=== PATIENT | male | born 1955 ===

== ENCOUNTER 2018-04-02 18:08 | Observation (INO) | payer BC, OTHER ==
--- NOTE | 2018-04-02 18:40 | ED PDOC ---
HPI: Chest Pain Time Seen by Provider: 04/02/18 18:37 Chief Complaint (Nursing): Chest Pain Chief Complaint (Provider): cp History Per: Patient (62 y/o male h/o Diabetes/HTN (diabetes controlled by diet) here with left sided chest pain waxing and waning since Sunday night. Denies any sob/vomiting/diarrhea. Denies any cough/falls. Denies any pleuritic component.) Past Medical History Reviewed: Historical Data, Nursing Documentation, Vital Signs Vital Signs: Last Vital Signs Temp 98 F 04/02/18 18:21 Pulse 64 04/02/18 18:21 Resp 18 04/02/18 18:21 BP 140/88 04/02/18 18:21 Pulse Ox 99 04/02/18 18:21 - Medical History PMH: HTN Denies: Arthritis, CHF, COPD, HIV, Hypercholesterolemia, Hypothyroidism, Chronic Kidney Disease, Rheumatoid Arthritis - Family History Family History: States: Unknown Family Hx - Immunization History Hx Tetanus Toxoid Vaccination: No Hx Influenza Vaccination: No Hx Pneumococcal Vaccination: No - Home Medications Home Medications: Ambulatory Orders Medication Instructions Recorded Valsartan/Hydrochlorothiazide 1 tab PO DAILY 03/07/15 [Valsartan and Hydrochlorothiazide 12.5 mg-320] - Allergies Allergies/Adverse Reactions: Allergies Allergy/AdvReac Type Severity Reaction Status Date / Time No Known Allergies Allergy Verified 04/02/18 18:21 Review of Systems ROS Statement: Except As Marked, All Systems Reviewed And Found Negative Cardiovascular: Positive for: Chest Pain Physical Exam - Reviewed Nursing Documentation Reviewed: Yes Vital Signs Reviewed: Yes - Physical Exam Appears: Positive for: Well, Non-toxic, No Acute Distress Head Exam: Positive for: ATRAUMATIC, NORMAL INSPECTION, NORMOCEPHALIC Skin: Positive for: Normal Color, Warm, DRY Eye Exam: Positive for: EOMI, Normal appearance, PERRL ENT: Positive for: Normal ENT Inspection Neck: Positive for: Normal, Painless ROM Cardiovascular/Chest: Positive for: Regular Rate, Rhythm Respiratory: Positive for: CNT, Normal Breath Sounds Gastrointestinal/Abdominal: Positive for: Normal Exam, Soft Back: Positive for: Normal Inspection Extremity: Positive for: Normal ROM Neurologic/Psych: Positive for: Alert, Oriented - Laboratory Results Result Diagrams: 04/03/18 06:20 04/03/18 06:20 - ECG ECG Rhythm: Positive for: Sinus Rhythm O2 Sat by Pulse Oximetry: 99 - Progress ED Course And Treament: asa 324 mg x 1 dose d/w Dr. Tejeda. Will admit to him. Requests cardiology consult Dr. Farah. Disposition - Clinical Impression Clinical Impression: Chest pain - Patient ED Disposition Is Patient to be Admitted: Yes - Disposition Disposition Time: 20:00 Condition: FAIR - Pt Status Changed To: Hospital Disposition Of: Inpatient - Admit Certification Admit to Inpatient:: After my assessment, the patient will require hospitalization for at least two midnights. This is because of the severity of symptoms shown, intensity of services needed, and/or the medical risk in this patient being treated as an outpatient.
[2018-04-02 19:26] LABS: BASO % 1.2 % (0.0-2.0); EOS % 0.8 % (0.0-4.0); LYMPH # 1.4 K/uL (1.0-4.3); LYMPH % 38.4 % (20.0-40.0); MEAN CELL VOLUME 94.1 fl (80.0-94.0); MEAN CORPUSCULAR HEMOGLOBIN 31.7 pg (27.0-31.0); MEAN CORPUSCULAR HGB CONC 33.6 g/dL (33.0-37.0); MEAN PLATELET VOLUME 8.7 fl (7.2-11.7); MONO # 0.3 K/uL (0.0-0.8); MONO % 9.3 % (0.0-10.0); NEUT # 1.8 K/uL (1.8-7.0); NEUT % 50.3 % (50.0-75.0); RBC 4.42 Mil/uL (4.40-5.90); RED CELL DISTRIBUTION WIDTH 13.5 % (11.5-14.5); WHITE BLOOD COUNT 3.5 K/uL (4.8-10.8)
[2018-04-02 19:44] LABS: ALB/GLOB RATIO 1.4 (1.0-2.1); ALBUMIN 4.5 g/dL (3.5-5.0); ALT/SGPT 30 U/L (21-72); AST/SGOT 32 U/L (17-59); BLOOD UREA NITROGEN 15 mg/dl (9-20); CALCIUM 9.6 mg/dL (8.4-10.2); GFR NON-AFRICAN AMERICAN > 60
[2018-04-02] MEDS ORDERED: Potassium Chloride 20 mEq ER Tab PO ONE ×2 (19:46→20:29)
[2018-04-02 19:47] LABS: PROTHROMBIN TIME 11.3 Seconds (9.8-13.1)
[2018-04-02 19:49] LABS: PARTIAL THROMBOPLASTIN TIME 30.5 Seconds (25.6-37.1)
[2018-04-03 06:57] LABS: HEMOGLOBIN 13.5 g/dL (12.0-18.0); MEAN CELL VOLUME 93.7 fl (80.0-94.0); MEAN CORPUSCULAR HEMOGLOBIN 31.3 pg (27.0-31.0); MEAN CORPUSCULAR HGB CONC 33.4 g/dL (33.0-37.0); RBC 4.32 Mil/uL (4.40-5.90); RED CELL DISTRIBUTION WIDTH 13.5 % (11.5-14.5); WHITE BLOOD COUNT 3.1 K/uL (4.8-10.8)
[2018-04-03 07:21] LABS: ALB/GLOB RATIO 1.4 (1.0-2.1); ALT/SGPT 32 U/L (21-72); AST/SGOT 30 U/L (17-59); BLOOD UREA NITROGEN 16 mg/dl (9-20); CALCIUM 9.1 mg/dL (8.4-10.2); GFR NON-AFRICAN AMERICAN > 60; HDL CHOLESTEROL 67 MG/DL (30-70)
[2018-04-03 07:32] LABS: LDL CHOLESTEROL 119 mg/dL (0-129)
--- NOTE | 2018-04-03 08:56 | CARD ---
APPROVED REPORT Date of service: 04/03/2018 EKG Measurement Heart [id number] <Conclusion> Sinus bradycardia Otherwise normal ECG
--- NOTE | 2018-04-03 13:07 | CP.PCM.HP ---
History of Present Illness - History of Present Illness History of Present Illness: 63 y/o M, with PMHx: HTN, DMII ( controlled with diet), Hx. ZACARIAS trimble, came to [facility] on 04/02/18 to be evaluated for Chest pain that began 2 days SECTION HAND and continue with no relief. CP began with with activity, described as L side, sharp, intermittent, stabbing type, non radiating, moderate intensity 5:10. associated condition, low HR, (in ER HR: 56). No worsening symptoms or aggravated factor. Pt denied: Fever, chills, n/v/d, abdominal pain, urinary symptoms, CP, syncope, dizziness, SOB, cough, sick contact, recent travel out of [place]. EKG: Sinus Bradycardia. Present on Admission - Present on Admission Any Indicators Present on Admission: No Review of Systems - Constitutional Constitutional: Other - EENT Eyes: Requires Corrective Lenses Ears: Other (negative) Nose/Mouth/Throat: Other (negative) - Cardiovascular Cardiovascular: Chest Pain - Respiratory Respiratory: Other (negative) - Gastrointestinal Gastrointestinal: Other (negative) - Genitourinary Genitourinary: Other (negative) - Musculoskeletal Musculoskeletal: Other (negative) - Integumentary Integumentary: Other (negative) - Neurological Neurological: Other (negative) - Psychiatric Psychiatric: Other (negative) - Endocrine Endocrine: Other (negative) - Hematologic/Lymphatic Hematologic: Other (negative) Past Patient History - Infectious Disease Hx of Infectious Diseases: None - Past Medical History & Family History Past Medical History?: Yes Pertinent Family History: Unknown - Past Social History Smoking Status: Never Smoked Alcohol: < 2 Drinks/Day Drugs: Denies Home Situation {Lives}: With Family - CARDIAC Hx Cardiac Disorders: Yes Hx Congestive Heart Failure: No Hx Hypercholesterolemia: No Hx Hypertension: Yes - PULMONARY Hx Respiratory Disorders: No Hx Chronic Obstructive Pulmonary Disease (COPD): No - NEUROLOGICAL Hx Neurological Disorder: No HX Cerebrovascular Accident: No - HEENT Hx HEENT Problems: Yes Other/Comment: reading glasses - RENAL Hx Chronic Kidney Disease: No - ENDOCRINE/METABOLIC Hx Endocrine Disorders: Yes Hx Diabetes Mellitus Type 2: Yes (controlled with diet.) - HEMATOLOGICAL/ONCOLOGICAL Hx Blood Disorders: No Hx Human Immunodeficiency Virus (HIV): No - INTEGUMENTARY Hx Dermatological Problems: No - MUSCULOSKELETAL/RHEUMATOLOGICAL Hx Musculoskeletal Disorders: Yes Hx Arthritis: No Hx Falls: Yes Hx Fractures: Yes (L ankle) Hx Rheumatoid Arthritis: No - GASTROINTESTINAL Hx Gastrointestinal Disorders: No - GENITOURINARY/GYNECOLOGICAL Hx Genitourinary Disorders: No - PSYCHIATRIC Hx Psychophysiologic Disorder: No Hx Substance Use: No - SURGICAL HISTORY Hx Surgeries: Yes Hx Orthopedic Surgery: Yes (l ankle orif 2013) - ANESTHESIA Hx Anesthesia: Yes Hx Anesthesia Reactions: No Hx Malignant Hyperthermia: No Meds Allergies/Adverse Reactions: Allergies Allergy/AdvReac Type Severity Reaction Status Date / Time No Known Allergies Allergy Verified 04/02/18 18:21 Physical Exam - Constitutional Appears: No Acute Distress - Head Exam Head Exam: NORMAL INSPECTION - Eye Exam Eye Exam: PERRL - ENT Exam ENT Exam: Normal Exam - Neck Exam Neck exam: Positive for: Normal Inspection - Respiratory Exam Respiratory Exam: NORMAL BREATHING PATTERN - Cardiovascular Exam Cardiovascular Exam: REGULAR RHYTHM - GI/Abdominal Exam GI & Abdominal Exam: Normal Bowel Sounds, Soft - Extremities Exam Extremities exam: Positive for: normal inspection Additional comments: S/P ORIF L ankle. - Back Exam Back exam: NORMAL INSPECTION - Neurological Exam Neurological exam: Alert, Oriented x3 Additional comments: No motor/sensory deficit. - Psychiatric Exam Psychiatric exam: Normal Mood - Skin Skin Exam: Normal Color, Warm Results - Vital Signs Recent Vital Signs: Last Vital Signs Temp 97.6 F 04/03/18 12:15 Pulse 63 04/03/18 12:15 Resp 18 04/03/18 12:15 BP 118/81 04/03/18 12:15 Pulse Ox 95 04/03/18 12:15 reviewed Jaime - Labs Result Diagrams: 04/03/18 06:20 04/03/18 06:20 Labs: Laboratory Results - last 24 hr 04/02/18 04/02/18 04/02/18 19:16 19:16 19:16 WBC 3.5 L D RBC 4.42 Hgb 14.0 Hct 41.6 MCV 94.1 H MCH 31.7 H MCHC 33.6 RDW 13.5 Plt Count 180 MPV 8.7 Neut % (Auto) 50.3 Lymph % (Auto) 38.4 [place] % (Auto) 9.3 Eos % (Auto) 0.8 Baso % (Auto) 1.2 Neut # (Auto) 1.8 Lymph # (Auto) 1.4 [place] # (Auto) 0.3 Eos # (Auto) 0.0 Baso # (Auto) 0.0 PT 11.3 INR 1.0 APTT 30.5 Sodium 135 Potassium 3.5 L Chloride 93 L Carbon Dioxide 30 Anion Gap 16 BUN 15 Creatinine 1.2 Est GFR ( Amer) > 60 Est GFR (Non-Af Amer) > 60 Random Glucose 118 H Hemoglobin A1c Calcium 9.6 Magnesium 1.6 Total Bilirubin 0.4 AST 32 ALT 30 Alkaline Phosphatase 74 Troponin I < 0.0120 Total Protein 7.7 Albumin 4.5 Globulin 3.2 Albumin/Globulin Ratio 1.4 Triglycerides Cholesterol LDL Cholesterol Direct HDL Cholesterol 25-OH Vitamin D Total Thyroxine (T4) TSH 3rd Generation 0.65 04/03/18 04/03/18 04/03/18 06:20 06:20 06:20 WBC 3.1 L RBC 4.32 L Hgb 13.5 Hct 40.5 MCV 93.7 MCH 31.3 H MCHC 33.4 RDW 13.5 Plt Count 181 MPV Neut % (Auto) Lymph % (Auto) [place] % (Auto) Eos % (Auto) Baso % (Auto) Neut # (Auto) Lymph # (Auto) [place] # (Auto) Eos # (Auto) Baso # (Auto) PT INR APTT Sodium 136 Potassium 3.8 Chloride 94 L Carbon Dioxide 31 H Anion Gap 15 BUN 16 Creatinine 1.0 Est GFR ( Amer) > 60 Est GFR (Non-Af Amer) > 60 Random Glucose 99 Hemoglobin A1c Calcium 9.1 Magnesium Total Bilirubin 0.6 AST 30 ALT 32 Alkaline Phosphatase 60 Troponin I < 0.0120 Total Protein 7.0 Albumin 4.0 Globulin 2.9 Albumin/Globulin Ratio 1.4 Triglycerides 108 Cholesterol 223 H LDL Cholesterol Direct 119 HDL Cholesterol 67 25-OH Vitamin D Total < 12.8 L Thyroxine (T4) 6.06 TSH 3rd Generation 1.40 04/03/18 06:20 WBC RBC Hgb Hct MCV MCH MCHC RDW Plt Count MPV Neut % (Auto) Lymph % (Auto) [place] % (Auto) Eos % (Auto) Baso % (Auto) Neut # (Auto) Lymph # (Auto) [place] # (Auto) Eos # (Auto) Baso # (Auto) PT INR APTT Sodium Potassium Chloride Carbon Dioxide Anion Gap BUN Creatinine Est GFR ( Amer) Est GFR (Non-Af Amer) Random Glucose Hemoglobin A1c 5.9 Calcium Magnesium Total Bilirubin AST ALT Alkaline Phosphatase Troponin I Total Protein Albumin Globulin Albumin/Globulin Ratio Triglycerides Cholesterol LDL Cholesterol Direct HDL Cholesterol 25-OH Vitamin D Total Thyroxine (T4) TSH 3rd Generation reviewed J.P. - EKG Data EKG comments: reviewed J.P. Assessment & Plan (1) Chest pain Status: Acute Priority: High (2) Hypertension Status: Chronic Priority: Medium - Assessment and Plan (Free Text) Plan: F/U CXR, Echo, Carotid-Vertebral U-S, Keep in NPO post MN, for Nuclear ST in AM with Dr Farah. Cardiology consult appreciated. - Date & Time Date: 04/03/18
--- NOTE | 2018-04-03 14:06 | CP.PCM.CON ---
History of Present Illness - History of Present Illness History of Present Illness: Miah No PGY1, Cardio consult note for Dr Farah Pt is a 63 yo male non smoker with a PMH of DM, HTN who presented to the emergency department complaining of 5/10 burning left sided chest pain which started Sunday and had been intermittent until arrival. Denies radiation to her arm or jaw. Pt states she was being active around the house when the pain started. The pain is not positional and not worsened by breathing. Pt did not try anything to help relieve the pain before arrival. A 12 point ROS was obta ined and added to the HPI where appropriate. Past Patient History - Infectious Disease Hx of Infectious Diseases: None - Past Medical History & Family History Past Medical History?: Yes - Past Social History Smoking Status: Never Smoked - CARDIAC Hx Congestive Heart Failure: No Hx Hypercholesterolemia: No Hx Hypertension: Yes - PULMONARY Hx Chronic Obstructive Pulmonary Disease (COPD): No - NEUROLOGICAL Hx Neurological Disorder: No HX Cerebrovascular Accident: No - HEENT Hx HEENT Problems: Yes Other/Comment: reading glasses - RENAL Hx Chronic Kidney Disease: No - ENDOCRINE/METABOLIC Hx Hypothyroidism: No - HEMATOLOGICAL/ONCOLOGICAL Hx Human Immunodeficiency Virus (HIV): No - INTEGUMENTARY Hx Dermatological Problems: No - MUSCULOSKELETAL/RHEUMATOLOGICAL Hx Arthritis: No Hx Falls: Yes Hx Rheumatoid Arthritis: No - GASTROINTESTINAL Hx Gastrointestinal Disorders: No - GENITOURINARY/GYNECOLOGICAL Hx Genitourinary Disorders: No - PSYCHIATRIC Hx Psychophysiologic Disorder: No Hx Substance Use: No - SURGICAL HISTORY Hx Surgeries: Yes Hx Orthopedic Surgery: Yes (l ankle orif 2013) - ANESTHESIA Hx Anesthesia: Yes Hx Anesthesia Reactions: No Hx Malignant Hyperthermia: No Meds Allergies/Adverse Reactions: Allergies Allergy/AdvReac Type Severity Reaction Status Date / Time No Known Allergies Allergy Verified 04/02/18 18:21 Physical Exam - Constitutional Appears: No Acute Distress - Head Exam Head Exam: ATRAUMATIC, NORMOCEPHALIC - Eye Exam Eye Exam: EOMI - ENT Exam ENT Exam: Mucous Membranes Moist - Neck Exam Neck exam: Positive for: Full Rom - Respiratory Exam Respiratory Exam: Clear to Auscultation Bilateral, NORMAL BREATHING PATTERN. absent: Accessory Muscle Use, Respiratory Distress - Cardiovascular Exam Cardiovascular Exam: RRR, +S1, +S2. absent: Diastolic murmur, Systolic Murmur - GI/Abdominal Exam GI & Abdominal Exam: Normal Bowel Sounds, Soft - Extremities Exam Extremities exam: Positive for: calf tenderness, full ROM, pedal pulses present. Negative for: pedal edema, tenderness - Neurological Exam Neurological exam: Alert, Normal Gait, Oriented x3 - Psychiatric Exam Psychiatric exam: Normal Affect, Normal Mood - Skin Skin Exam: Dry, Normal Color Results - Vital Signs Recent Vital Signs: Last Vital Signs Temp 97.6 F 04/03/18 12:15 Pulse 63 04/03/18 12:15 Resp 18 04/03/18 12:15 BP 118/81 04/03/18 12:15 Pulse Ox 95 04/03/18 12:15 - Labs Result Diagrams: 04/03/18 06:20 04/03/18 06:20 Labs: Laboratory Results - last 24 hr 04/02/18 04/02/18 04/02/18 19:16 19:16 19:16 WBC 3.5 L D RBC 4.42 Hgb 14.0 Hct 41.6 MCV 94.1 H MCH 31.7 H MCHC 33.6 RDW 13.5 Plt Count 180 MPV 8.7 Neut % (Auto) 50.3 Lymph % (Auto) 38.4 [place] % (Auto) 9.3 Eos % (Auto) 0.8 Baso % (Auto) 1.2 Neut # (Auto) 1.8 Lymph # (Auto) 1.4 [place] # (Auto) 0.3 Eos # (Auto) 0.0 Baso # (Auto) 0.0 PT 11.3 INR 1.0 APTT 30.5 Sodium 135 Potassium 3.5 L Chloride 93 L Carbon Dioxide 30 Anion Gap 16 BUN 15 Creatinine 1.2 Est GFR ( Amer) > 60 Est GFR (Non-Af Amer) > 60 Random Glucose 118 H Hemoglobin A1c Calcium 9.6 Magnesium 1.6 Total Bilirubin 0.4 AST 32 ALT 30 Alkaline Phosphatase 74 Troponin I < 0.0120 Total Protein 7.7 Albumin 4.5 Globulin 3.2 Albumin/Globulin Ratio 1.4 Triglycerides Cholesterol LDL Cholesterol Direct HDL Cholesterol 25-OH Vitamin D Total Thyroxine (T4) TSH 3rd Generation 0.65 04/03/18 04/03/18 04/03/18 06:20 06:20 06:20 WBC 3.1 L RBC 4.32 L Hgb 13.5 Hct 40.5 MCV 93.7 MCH 31.3 H MCHC 33.4 RDW 13.5 Plt Count 181 MPV Neut % (Auto) Lymph % (Auto) [place] % (Auto) Eos % (Auto) Baso % (Auto) Neut # (Auto) Lymph # (Auto) [place] # (Auto) Eos # (Auto) Baso # (Auto) PT INR APTT Sodium 136 Potassium 3.8 Chloride 94 L Carbon Dioxide 31 H Anion Gap 15 BUN 16 Creatinine 1.0 Est GFR ( Amer) > 60 Est GFR (Non-Af Amer) > 60 Random Glucose 99 Hemoglobin A1c Calcium 9.1 Magnesium Total Bilirubin 0.6 AST 30 ALT 32 Alkaline Phosphatase 60 Troponin I < 0.0120 Total Protein 7.0 Albumin 4.0 Globulin 2.9 Albumin/Globulin Ratio 1.4 Triglycerides 108 Cholesterol 223 H LDL Cholesterol Direct 119 HDL Cholesterol 67 25-OH Vitamin D Total < 12.8 L Thyroxine (T4) 6.06 TSH 3rd Generation 1.40 04/03/18 06:20 WBC RBC Hgb Hct MCV MCH MCHC RDW Plt Count MPV Neut % (Auto) Lymph % (Auto) [place] % (Auto) Eos % (Auto) Baso % (Auto) Neut # (Auto) Lymph # (Auto) [place] # (Auto) Eos # (Auto) Baso # (Auto) PT INR APTT Sodium Potassium Chloride Carbon Dioxide Anion Gap BUN Creatinine Est GFR ( Amer) Est GFR (Non-Af Amer) Random Glucose Hemoglobin A1c 5.9 Calcium Magnesium Total Bilirubin AST ALT Alkaline Phosphatase Troponin I Total Protein Albumin Globulin Albumin/Globulin Ratio Triglycerides Cholesterol LDL Cholesterol Direct HDL Cholesterol 25-OH Vitamin D Total Thyroxine (T4) TSH 3rd Generation Assessment & Plan - Assessment and Plan (Free Text) Assessment: Angina, rule out ACS HTN DM Plan: Angina, ACS rule out Trop 04/02/18 negative x2 HA1C 04/03/18 5.9 EKG 04/03/[address], [address] or T wave abnormalities ECHO 04/03/18 completed, follow up results Follow up stress test tomorrow Medications given ASA Pt seen, examined, assessment and plan discussed with Dr Gagan No PGY1, Internal Medicine Resident - Date & Time Date: 04/03/18 Time: 07:40
--- NOTE | 2018-04-03 15:00 | CARD ---
APPROVED REPORT Date of service: 04/03/2018 EXAM: Two-dimensional and M-mode echocardiogram with Doppler and color Doppler. Other Information Quality : GoodRhythm : NSR INDICATION Chest Pain 2D DIMENSIONS IVSd1.01 (0.7-1.1cm)LVDd4.88 (3.9-5.9cm) LVOT Diameter2.43 (1.8-2.4cm)PWd0.95 (0.7-1.1cm) IVSs1.16 (0.8-1.2cm)LVDs3.70 (2.5-4.0cm) FS (%) 24.3 %PWs1.31 (0.8-1.2cm) M-Mode DIMENSIONS Left Atrium (MM)3.65 (2.5-4.0cm)IVSd0.97 (0.7-1.1cm) Aortic Root3.50 (2.2-3.7cm)LVDd5.79 (4.0-5.6cm) Aortic Cusp Exc.2.56 (1.5-2.0cm)PWd1.06 (0.7-1.1cm) IVSs1.47 cmFS (%) 50 % LVDs2.88 (2.0-3.8cm)PWs2.03 cm Aortic Valve AoV Peak Nkbhznpk567.5cm/sAoV VTI30.0cmAO Peak GR.10mmHg LVOT Peak Mzfqbxiu20.5cm/sLVOT VTI16.18cmAO Mean GR.5mmHg SANDOVAL (VMAX)1.05lw1WSI (VTI)1.29cm2 Mitral Valve MV E Zbhkdiyp39.4cm/sMV DECEL [id number] A Zugxhkez11.0cm/s MV ULZ76hrB/A ratio1.2MVA (PHT)4.16cm2 TDI Lateral E' Peak V14.96cm/sMedial E' Peak V9.86cm/sE/Lateral E'4.2 E/Medial E'6.4 LEFT VENTRICLE The left ventricle is normal size. There is normal left ventricular wall thickness. The left ventricular systolic function is normal. The estimated ejection fraction is 55-60% No regional wall motion abnormalities noted.. The left ventricular diastolic function is normal. No left ventricle thrombus noted on this study. There is no ventricular septal defect visualized. There is no left ventricular aneurysm. There is no mass noted in the left ventricle. RIGHT VENTRICLE The right ventricle is normal size. There is normal right ventricular wall thickness. The right ventricular systolic function is normal. ATRIA The left atrium size is normal. The right atrium size is normal. The interatrial septum is intact with no evidence for an atrial septal defect. AORTIC VALVE The aortic valve is normal in structure. No aortic regurgitation is present. There is no aortic valvular stenosis. There is no aortic valvular vegetation. MITRAL VALVE The mitral valve is normal in structure. There is no evidence of mitral valve prolapse. There is no mitral valve stenosis. There is no mitral valve regurgitation noted. TRICUSPID VALVE The tricuspid valve is normal in structure. There is no tricuspid valve regurgitation noted. There is no tricuspid valve prolapse or vegetation. There is no tricuspid valve stenosis. PULMONIC VALVE The pulmonary valve is normal in structure. There is no pulmonic valvular regurgitation. There is no pulmonic valvular stenosis. GREAT VESSELS The aortic root is normal in size. The ascending aorta is normal in size. The pulmonary artery is normal. The IVC is normal in size and collapses >50% with inspiration. PERICARDIAL EFFUSION There is no pericardial effusion. There is no pleural effusion. <Conclusion> The estimated ejection fraction is 55-60% The left ventricular diastolic function is normal. The left atrium size is normal. There is no tricuspid valve regurgitation noted. The IVC is normal in size and collapses >50% with inspiration.
--- NOTE | 2018-04-03 15:35 | US ---
Date of service: 04/03/2018 PROCEDURE: Duplex ultrasound of the carotid and vertebral arteries. HISTORY: as per Dr. garcia COMPARISON: None available. TECHNIQUE: Grayscale and duplex Doppler evaluation of the cervical carotid and vertebral arteries were performed. The common carotid, carotid bifurcations and cervical ICA and proximal ECA were evaluated. The vertebral arteries were evaluated for gross patency and direction. FINDINGS: RIGHT CAROTID ARTERIES: Common Carotid Artery: Maximal flow velocity of 112.1 cm/s. Carotid Bifurcation: Intimal thickening is present Internal Carotid Artery:Heterogeneous plaque formation. Maximal flow velocity of 90.1 cm/s. External Carotid Artery (proximal branches): Maximal flow velocity of 91.7 cm/s. ICA/CCA Ratio: 0.8 LEFT CAROTID ARTERIES: Common Carotid Artery: Maximal flow velocity of 93.2 cm/s. Carotid Bifurcation: Intimal thickening is present Internal Carotid Artery:Heterogeneous plaque formation. Maximal flow velocity of 84.0 cm/s. External Carotid Artery (proximal branches): Maximal flow velocity of 64.6 cm/s. ICA/CCA Ratio: 0.9 VERTEBRAL ARTERIES: Right Vertebral Artery: Patent. Antegrade flow. Left Vertebral Artery: Patent. Antegrade flow. OTHER FINDINGS: Atherosclerotic calcification present. IMPRESSION: Right ICA degree of stenosis: Less than 50% Left ICA degree of stenosis: Less than 50% Reference Internal Carotid Artery (ICA) Peak Systolic Velocity (PSV) for above: 1. Less than 50% stenosis less than 125 cm/s peak systolic velocity 2. 50-69% stenosis 125-230cm/s peak systolic velocity 3. Greater than 70% but less than near occlusion greater than 230 cm/s peak systolic velocity
--- NOTE | 2018-04-03 16:46 | RAD ---
Date of service: 04/02/2018 HISTORY: cp COMPARISON: Chest radiographs 06/19/2013. FINDINGS: LUNGS: Diminished inspiratory volume. No acute infiltrate bilaterally. PLEURA: No significant pleural effusion identified, no pneumothorax apparent. CARDIOVASCULAR: No aortic atherosclerotic calcification present. Normal cardiac size. No pulmonary vascular congestion. OSSEOUS STRUCTURES: No significant abnormalities. VISUALIZED UPPER ABDOMEN: Normal. OTHER FINDINGS: None. IMPRESSION: Diminished inspiratory volume. No acute infiltrate, pleural effusion, pneumothorax or pulmonary vascular congestion in the interval.
--- NOTE | 2018-04-04 08:40 | CP.PCM.PN ---
Subjective - Date & Time of Evaluation Date of Evaluation: 04/04/18 Time of Evaluation: 07:35 - Subjective Subjective: Pt seen and examined this morning at bedside. Denies chest pain or SOB Objective - Vital Signs/Intake and Output Vital Signs (last 24 hours): Temp Pulse Resp BP Pulse Ox 97.9 F 60 18 133/75 96 04/04/18 08:25 04/04/18 08:25 04/04/18 08:25 04/04/18 08:25 04/04/18 08:25 - Labs Labs: 04/03/18 06:20 04/03/18 06:20 PT 11.3 Seconds (9.8-13.1) 04/02/18 19:16 INR 1.0 04/02/18 19:16 APTT 30.5 Seconds (25.6-37.1) 04/02/18 19:16 - Constitutional Appears: No Acute Distress - Head Exam Head Exam: ATRAUMATIC, NORMOCEPHALIC - Eye Exam Eye Exam: EOMI - ENT Exam ENT Exam: Mucous Membranes Moist - Neck Exam Neck Exam: Full ROM - Respiratory Exam Respiratory Exam: Clear to Ausculation Bilateral, NORMAL BREATHING PATTERN. absent: Accessory Muscle Use - Cardiovascular Exam Cardiovascular Exam: RRR, +S1, +S2. absent: Diastolic murmur - GI/Abdominal Exam GI & Abdominal Exam: Soft, Normal Bowel Sounds. absent: Tenderness - Extremities Exam Extremities Exam: Full ROM. absent: Calf Tenderness, Pedal Edema - Neurological Exam Neurological Exam: Alert, Awake, Oriented x3 - Psychiatric Exam Psychiatric exam: Normal Affect, Normal Mood - Skin Skin Exam: Dry, Normal Color, Warm Assessment and Plan - Assessment and Plan (Free Text) Assessment: Angina, rule out ACS HTN DM Plan: Angina, ACS rule out Trop 04/02/18 negative x2 HA1C 04/03/18 5.9 EKG 04/03/18 bradycardia, no ST or T wave abnormalities ECHO 04/03/18 EF55-60%, diastolic function normal Follow up stress test Pt seen, examined, assessment and plan discussed with Dr Gagan oN PGY1, Internal Medicine Resident
--- NOTE | 2018-04-04 15:22 | CARD ---
APPROVED REPORT Date of service: 04/04/2018 Protocol: COLIN Test Type: Stress Nuclear Medications: ASPIRIN 81MG Medical History: DIABETIC, HTN, OTHOPEDIC SURGERY LT ANKLE 2013 Target HR: 159 bpm Resting ECG: normal Resting Heart Rate: 76 bpm Resting Blood Pressure: 153/105mmHg submaximum (85%): 135 bpm TEST SUMMARY EXERCISESTAGE 202:[id number]/90.1. [id number]/105.0. PRETESTHYPERV.00:[id number]/105.0. PRETESTWARM-UP21:[id number]/105.1. EXERCISESTAGE 103:[id number]/80.0. EXERCISESTAGE 202:[id number]/90.1. CKYIHGDR22:[id number]/100.1. POST EXERCISE Reason for Termination: Fatigue Target HR: No Max HR: 136 bpm 86% of Maximum Predicted HR: 159 bpm Exercise duration: 05:10 min:sec, 2 Stage Exercise capacity: 7.0METs Max Blood Pressure: 200/90mmHg Blood Pressure response to exercise: normal resting BP - appropriate response Heart Rate response to exercise: appropriate Chest Pain: No, none Angina index: 0 Arrhythmia: No, none ST Change: No, none Deviation: 0 mm Clinical Indications Under Appropriate Use Criteria Patient with a history of diabetes comes in into the hospital with history of chest pressure for nuclear stress test Stress EKG Interpretation No st or t waves changes noticed. No chest pain reported during the stress test RESTING ECG Rhythm: Sinus Conduction: Normal Arrhythmias: None Repolarization: Normal STRESS ECG Rhythm: Sinus Conduction: Normal Arrhythmias: None Repolarization: Normal none ST-Segment changes. EXAM: Myocardial Perfusion REST/STRESS Image QualityGood Imaging Protocol The imaging protocol used to acquire images was Rest Tc-99m/stress Tc-99m 1 day Rest Spect myocardial perfusion imaging was performed in supine position 132 minutes following the injection of 10 mCi of Tc-99 Myoview. Time of rest injection: 7:59 Time of rest imagin:12 At peak stress, the patient was injected intravenously with 30mCi of Tc-99 tetrofosmin after an infusion time of minutes and seconds. Time of stress injection: 10:55 Time of stress imagin:22 Gated Stress Spect was performed 207 minutes after intravenous Tc-99 Myoview injection. The images were gated to evaluate regional wall motion and calculate ventricular ejection fraction. NUCLEAR IMAGE INTERPRETATION Study quality was excellent. Left Ventricular size was Enlarged at Rest and Stress. Lung uptake was Normal. Left Ventricular ejection fraction is 58%. LV Perfusion There is a perfusion defect affecting the inferior wall of the left ventricle. NO reversible defect was noticed. LV Perfusion 1 Perfusion Defect Location: basal inferior Perfusion Defect Size: Small (1-2 segments) Perfusion Defect Severity: Mild Wall Motion Thre is a mild area of akinesia affecting the inferior wall of the left ventricle. LVEF 58% CONCLUSION 1. -Abnormal nuclear stress test due to area of akinesia on the inferior wall and a small fixed defect on the area of the RCA. No reversible defect noticed (no new area of myocardial ischemia) Recommendation Medical therpay
[2018-04-04 16:24] VITALS: BP 133/83; PULSE 70; RESP 16; TEMP 97.9; O2SAT 97
--- NOTE | 2018-04-04 19:33 | CP.PCM.PN ---
Objective - Vital Signs/Intake and Output Vital Signs (last 24 hours): Temp Pulse Resp BP Pulse Ox 97.9 F 70 16 133/83 97 04/04/18 16:23 04/04/18 16:23 04/04/18 16:23 04/04/18 16:23 04/04/18 16:23 - Labs Labs: 04/03/18 06:20 04/03/18 06:20 PT 11.3 Seconds (9.8-13.1) 04/02/18 19:16 INR 1.0 04/02/18 19:16 APTT 30.5 Seconds (25.6-37.1) 04/02/18 19:16 Assessment and Plan (1) Chest pain Status: Acute (2) Hypertension Status: Chronic
--- NOTE | 2018-04-04 20:09 | CP.PCM.DIS ---
Provider - Provider Date of Admission: 04/02/18 20:10 Attending physician: Baldomero Tejeda MD Consults: 04/02/18 21:38 Cardiology Consult Stat Comment: Consulting Provider: Angelito Farah Consulting Physician: Angelito Farah Reason for Consult: CP Diagnosis - Discharge Diagnosis (1) Chest pain Status: Acute Priority: High (2) Hypertension Status: Chronic Priority: Medium Hospital Course - Lab Results Lab Results: Most Recent Lab Values WBC 3.1 K/uL (4.8-10.8) L 04/03/18 06:20 RBC 4.32 Mil/uL (4.40-5.90) L 04/03/18 06:20 Hgb 13.5 g/dL (12.0-18.0) 04/03/18 06:20 Hct 40.5 % (35.0-51.0) 04/03/18 06:20 MCV 93.7 fl (80.0-94.0) 04/03/18 06:20 MCH 31.3 pg (27.0-31.0) H 04/03/18 06:20 MCHC 33.4 g/dL (33.0-37.0) 04/03/18 06:20 RDW 13.5 % (11.5-14.5) 04/03/18 06:20 Plt Count 181 K/uL (130-400) 04/03/18 06:20 MPV 8.7 fl (7.2-11.7) 04/02/18 19:16 Neut % (Auto) 50.3 % (50.0-75.0) 04/02/18 19:16 Lymph % (Auto) 38.4 % (20.0-40.0) 04/02/18 19:16 [place] % (Auto) 9.3 % (0.0-10.0) 04/02/18 19:16 Eos % (Auto) 0.8 % (0.0-4.0) 04/02/18 19:16 Baso % (Auto) 1.2 % (0.0-2.0) 04/02/18 19:16 Neut # (Auto) 1.8 K/uL (1.8-7.0) 04/02/18 19:16 Lymph # (Auto) 1.4 K/uL (1.0-4.3) 04/02/18 19:16 [place] # (Auto) 0.3 K/uL (0.0-0.8) 04/02/18 19:16 Eos # (Auto) 0.0 K/uL (0.0-0.7) 04/02/18 19:16 Baso # (Auto) 0.0 K/uL (0.0-0.2) 04/02/18 19:16 PT 11.3 Seconds (9.8-13.1) 04/02/18 19:16 INR 1.0 04/02/18 19:16 APTT 30.5 Seconds (25.6-37.1) 04/02/18 19:16 Sodium 136 mmol/l (132-148) 04/03/18 06:20 Potassium 3.8 MMOL/L (3.6-5.0) 04/03/18 06:20 Chloride 94 mmol/L (98-107) L 04/03/18 06:20 Carbon Dioxide 31 mmol/L (22-30) H 04/03/18 06:20 Anion Gap 15 (10-20) 04/03/18 06:20 BUN 16 mg/dl (9-20) 04/03/18 06:20 Creatinine 1.0 mg/dl (0.8-1.5) 04/03/18 06:20 Est GFR ( Amer) > 60 04/03/18 06:20 Est GFR (Non-Af Amer) > 60 04/03/18 06:20 Random Glucose 99 mg/dL (75-110) 04/03/18 06:20 Hemoglobin A1c 5.9 % (4.2-6.5) 04/03/18 06:20 Calcium 9.1 mg/dL (8.4-10.2) 04/03/18 06:20 Magnesium 1.6 MG/DL (1.6-2.3) 04/02/18 19:16 Total Bilirubin 0.6 mg/dl (0.2-1.3) 04/03/18 06:20 AST 30 U/L (17-59) 04/03/18 06:20 ALT 32 U/L (21-72) 04/03/18 06:20 Alkaline Phosphatase 60 U/L (38-126) 04/03/18 06:20 Troponin I < 0.0120 ng/mL (0.00-0.120) 04/03/18 21:45 Total Protein 7.0 G/DL (6.3-8.2) 04/03/18 06:20 Albumin 4.0 g/dL (3.5-5.0) 04/03/18 06:20 Globulin 2.9 gm/dL (2.2-3.9) 04/03/18 06:20 Albumin/Globulin Ratio 1.4 (1.0-2.1) 04/03/18 06:20 Triglycerides 108 mg/DL (0-149) 04/03/18 06:20 Cholesterol 223 mg/dL (0-199) H 04/03/18 06:20 LDL Cholesterol Direct 119 mg/dL (0-129) 04/03/18 06:20 HDL Cholesterol 67 MG/DL (30-70) 04/03/18 06:20 25-OH Vitamin D Total < 12.8 NG/ML (30.0-100.0) L 04/03/18 06:20 Thyroxine (T4) 6.06 ug/dl (5.5-11.0) 04/03/18 06:20 TSH 3rd Generation 1.40 mIU/ML (0.46-4.68) 04/03/18 06:20 Discharge Exam - Head Exam Head Exam: ATRAUMATIC, NORMOCEPHALIC Discharge Plan - Follow Up Plan Condition: FAIR Disposition: HOME/ ROUTINE Instructions: Chest Pain (DC) Additional Instructions: please follow up with your primary doctor in 1 week Referrals: Naresh Small MD [Staff Provider] - Angelito Farah MD [Staff Provider] - Baldomero Tejeda MD [Staff Provider] -
== END 2018-04-04 19:55 | disposition home or self-care (01) ==
LOC: H.ER 18:08 → EDBD 18:08 → H.ERHOLD 20:10 → H.TEL 04-03 01:44
PROVIDERS: ADMIT Internal Medicine Pulmonary Disease; ATTEND Internal Medicine Pulmonary Disease
DX: R07.9 Chest pain, unspecified (principal); E11.9 Type 2 diabetes mellitus without complications; I10 Essential (primary) hypertension; R00.1 Bradycardia, unspecified
CPT/HCPCS: 36415; 71045; 78452; 80053; 80061; 82306; 83036; 83735; 84436; 84443; 84484; 85025; 85027; 85610; 85730; 93005; 93017; 93306; 93880; 99285; A9502; G0378